=== PATIENT | male | born 1955 | race Hispanic/Latino ===

== ENCOUNTER → 2021-09-03 | Outpatient (CLI) | payer OTHER | END | disposition home or self-care (01) | LOC: RAH 13:47 | PROVIDERS: ATTEND Internal Medicine | DX: M47.26 Other spondylosis with radiculopathy, lumbar region (principal); M48.07 Spinal stenosis, lumbosacral region; M54.32 Sciatica, left side | CPT/HCPCS: 72148 ==

== ENCOUNTER → 2023-05-31 | Outpatient (CLI) | payer OTHER | END | disposition home or self-care (01) | LOC: RAH 10:09 | PROVIDERS: ATTEND Internal Medicine | DX: Z13.6 Encounter for screening for cardiovascular disorders (principal) | CPT/HCPCS: 75571 ==